=== PATIENT | male | born 1995 | race Two or more races ===

== ENCOUNTER → 2022-07-28 | Outpatient (CLI) | payer SELFPAY | END | disposition home or self-care (01) | LOC: RAD 16:13 | PROVIDERS: ATTEND Internal Medicine Critical Care Medicine | DX: R06.02 Shortness of breath (principal) | CPT/HCPCS: 71046 ==

== ENCOUNTER → 2023-04-05 | Outpatient (CLI) | payer BC, MEDICAID ==
[2023-04-05 11:15] LABS: BASOPHILS % 0.7 % (0.0-2.0); EOSINOPHILS % 1.2 % (0.0-5.0); HEMATOCRIT. 43.9 % (42.0-52.0); LYMPHOCYTES % 38.7 % (20.0-50.0); MEAN CORPUSCULAR HEMOGLOBIN 28.5 pg (28.0-32.0); MEAN CORPUSCULAR HGB CONC 34.1 g/dL (31.0-37.0); MEAN CORPUSCULAR VOLUME 83.6 fL (80.0-94.0); MEAN PLATELET VOLUME 7.4 fl (7.4-10.4); MONOCYTES % 7.8 % (2.0-8.0); NEUTROPHILS % 51.6 % (40.0-76.0); PLATELET 322 x1000/uL (130-400); RED BLOOD CELL COUNT 5.25 mill/uL (4.7-6.1)
[2023-04-05 11:49] LABS: CLARITY URINE CLEAR (CLEAR); COLOR URINE YELLOW (YELLOW); GLUCOSE URINE NEGATIVE (NEGATIVE); KETONES URINE NEGATIVE (NEGATIVE); LEUKOCYTE ESTERASE URINE NEGATIVE (NEGATIVE); NITRITE URINE NEGATIVE (NEGATIVE); OCCULT BLOOD URINE NEGATIVE (NEGATIVE); PROTEIN URINE NEGATIVE (NEGATIVE); SPECIFIC GRAVITY URINE 1.009 (1.005-1.030); UROBILINOGEN URINE 0.2 E.U./dL (0.2-1.0)
[2023-04-05 12:17] LABS: CHLORIDE 107 mEq/L (98-107); INDEX HEMOLYSI 1 (1-3); INDEX ICTERIC 1 (1-4); INDEX LIPEMIC 1 (1-3); POTASSIUM 3.9 mEq/L (3.5-5.1); SODIUM 139 mEq/L (136-145)
[2023-04-05 12:30] LABS: ALANINE AMINOTRANSFERASE 46 IU/L (13-61); ALBUMIN 4.5 g/dL (3.4-5.0); ASPARTATE AMINOTRANSFERASE 24 IU/L (15-37); BILIRUBIN TOTAL 0.6 mg/dL (0.1-1.0); CARBON DIOXIDE 29 mEq/L (21-32); CHOLESTEROL 242 mg/dL (<200); GLUCOSE 94 mg/dL (70-105); HDL CHOLESTEROL 76 mg/dL (40-59); IRON 132 ug/dL (50-175); LDL CHOLESTEROL 155 mg/dL (5-100); PROTEIN TOTAL 7.9 g/dL (6.0-8.3); THYROID STIMULATING HORMONE 0.48 uIU/mL (0.36-3.74); TOTAL IRON BINDING CAPACITY 349 ug/dL (250-450); TRIGLYCERIDE 45 mg/dL (0-150); UREA NITROGEN BLOOD 13 mg/dL (7-21)
[2023-04-05 12:42] LABS: FERRITIN 135 ng/mL (22-322)
[2023-04-05 12:52] LABS: RUBELLA IGG 142 IU/ML (>10)
[2023-04-05 12:53] LABS: HEPATITIS B SURFACE ANTIGEN NEGATIVE
[2023-04-05 13:17] LABS: VITAMIN B12 SERUM 1006 pg/mL (211-911)
[2023-04-05 13:20] LABS: HEPATITIS C VIR.AB 0.05 INDEXVAL (0.00-0.80)
[2023-04-05 13:21] LABS: HEPATITIS B CORE AB IGM NEGATIVE
[2023-04-05 13:23] LABS: HEPATITIS A AB IGM NEGATIVE (NEGATIVE)
[2023-04-06 06:12] LABS: HIV SCREEN 4G Non Reactive (Non Reactive); VITAMIN D 25-OH 65.9 ng/mL (30.0-100.0)
[2023-04-07 07:08] LABS: CHLAMYDIA TRACHOMATIS NAA Negative (Negative); NEISSERIA GONORRHOEAE NAA Negative (Negative)
== END | disposition home or self-care (01) ==
LOC: LAB 10:40
PROVIDERS: ATTEND Internal Medicine Geriatric Medicine
DX: Z00.01 Encounter for general adult medical examination with abnormal findings (principal); Z11.3 Encounter for screening for infections with a predominantly sexual mode of transmission; N39.0 Urinary tract infection, site not specified
CPT/HCPCS: 36415; 80053; 80061; 81003; 82306; 82607; 82728; 82746; 83036; 83540; 83550; 84443; 85025; 86592; 86705; 86709; 86762; 86803; 87340; 87389; 87491; 87591

== ENCOUNTER → 2023-05-17 | Outpatient (CLI) | payer BC | END | disposition home or self-care (01) | LOC: US 07:46 | PROVIDERS: ATTEND Internal Medicine Geriatric Medicine | DX: N28.1 Cyst of kidney, acquired (principal); R10.30 Lower abdominal pain, unspecified; K82.4 Cholesterolosis of gallbladder; N45.1 Epididymitis | CPT/HCPCS: 76700; 76857 ==

== ENCOUNTER 2024-05-23 08:43 | Emergency (ER) | payer BC ==
[2024-05-23 08:44] VITALS: PULSE 86; O2SAT 97
[2024-05-23 09:39] LABS: CHLORIDE 104 mEq/L (98-107); POTASSIUM 4.1 mEq/L (3.5-5.1); SODIUM 141 mEq/L (136-145)
[2024-05-23 09:40] LABS: CALCIUM 9.8 mg/dL (8.7-10.4); CARBON DIOXIDE 30 mEq/L (21-32)
[2024-05-23 09:42] LABS: BASOPHILS % 1.6 % (0.0-2.0); EOSINOPHILS % 0.4 % (0.0-5.0); HEMATOCRIT. 46.1 % (42.0-52.0); HEMOGLOBIN. 15.1 g/dL (14.0-18.0); LYMPHOCYTES % 20.1 % (20.0-50.0); MEAN CORPUSCULAR HEMOGLOBIN 28.4 pg (28.0-32.0); MEAN CORPUSCULAR HGB CONC 32.7 g/dL (31.0-37.0); MEAN CORPUSCULAR VOLUME 86.7 fL (80.0-94.0); MEAN PLATELET VOLUME 7.5 fl (7.4-10.4); MONOCYTES % 5.7 % (2.0-8.0); NEUTROPHILS % 72.2 % (40.0-76.0); PLATELET 339 x1000/uL (130-400); RED BLOOD CELL COUNT 5.32 mill/uL (4.7-6.1); RED CELL DISTRIBUTION WIDTH 13.4 % (11.6-14.6)
[2024-05-23 09:45] LABS: GLUCOSE 109 mg/dL (70-105); UREA NITROGEN BLOOD 12 mg/dL (9-23)
[2024-05-23 09:47] LABS: ALANINE AMINOTRANSFERASE 29 IU/L (10-49); ALBUMIN 4.8 g/dL (3.2-4.8); ASPARTATE AMINOTRANSFERASE 21 IU/L (<34); BILIRUBIN DIRECT 0.2 mg/dL (<=3.0); BILIRUBIN TOTAL 0.7 mg/dL (0.1-1.0); PROTEIN TOTAL 7.2 g/dL (6.0-8.3)
== END 2024-05-23 18:12 | disposition left against medical advice (07) ==
LOC: ER 08:48
DX: R10.11 Right upper quadrant pain (principal)
CPT/HCPCS: 36415; 76705; 80048; 80076; 85025; 99284

== ENCOUNTER 2024-09-30 02:37 | Emergency (ER) | payer SELFPAY ==
[2024-09-30] MEDS: ONDANSETRON HCL 4MG/2ML INJ IV ONE (03:07)
[2024-09-30] MEDS: KETOROLAC 30MG/ML VIAL IV ONE (03:07)
[2024-09-30] MEDS: LACTATED RINGERS 1,000 ML IV SCH (03:09)
[2024-09-30 04:15] VITALS: BP 118/67; PULSE 94; RESP 18; TEMP 36.8; O2SAT 98
[2024-09-30] MEDS ORDERED: ONDA-239 PO (04:27)
[2024-09-30] MEDS ORDERED: LOPE2CAP MT (04:27)
== END 2024-09-30 04:38 | disposition home or self-care (01) ==
LOC: ER 02:37
DX: R11.2 Nausea with vomiting, unspecified (principal); Z79.899 Other long term (current) drug therapy
CPT/HCPCS: 96361; 96374; 96375; 99284; J1885; J2405; Z7610